=== PATIENT | female | born 1975 | race Caucasian/White ===

== ENCOUNTER 2019-04-01 13:53 | Emergency (ER) | payer MEDICAID ==
[~2019-04-01] VITALS: Ht 167.6 cm; Wt 68.0 kg
[2019-04-01 13:57] VITALS: Ht 167.6 cm; Wt 68.0 kg
[2019-04-01 15:50] VITALS: BP 136/75
== END 2019-04-01 15:48 | disposition home or self-care (01) ==
LOC: ED 13:53
DX: M54.42 Lumbago with sciatica, left side (principal); M54.41 Lumbago with sciatica, right side
CPT/HCPCS: J1885

== ENCOUNTER 2019-09-25 15:40 | Emergency (ER) | payer SELFPAY ==
[~2019-09-25] VITALS: Ht 162.6 cm; Wt 68.0 kg
[2019-09-25 15:46] VITALS: Ht 162.6 cm; Wt 68.0 kg
[2019-09-25 17:08] VITALS: BP 104/48
== END 2019-09-25 17:00 | disposition home or self-care (01) ==
LOC: ED 15:40
DX: M54.41 Lumbago with sciatica, right side (principal); G89.29 Other chronic pain
CPT/HCPCS: J1885